=== PATIENT | male | born 1995 | race Two or more races ===

== ENCOUNTER 2017-12-27 18:59 | Emergency (ER) | payer OTHER ==
[~2017-12-27] VITALS: Ht 167.6 cm; Wt 58.5 kg
[2017-12-27 19:11] VITALS: BP 137/74
[2017-12-27] MEDS ORDERED: IBUPROFEN 800 MG TAB PO ONE (19:45)
== END 2017-12-27 20:22 | disposition home or self-care (01) ==
LOC: ER 18:59
DX: S00.83XA Contusion of other part of head, initial encounter (principal); M79.604 Pain in right leg; W01.0XXA Fall on same level from slipping, tripping and stumbling without subsequent striking against object, initial encounter; Y93.89 Activity, other specified; Y99.8 Other external cause status; Y92.89 Other specified places as the place of occurrence of the external cause
CPT/HCPCS: 73590